=== PATIENT | female | born 1995 | race Caucasian/White ===

== ENCOUNTER 2020-02-24 14:47 | Outpatient (REF) | payer BC, SELFPAY ==
[2020-02-24 15:25] LABS: COVID-19 Test Negative (Negative)
== END 2020-02-24 14:48 | disposition home or self-care (01) ==
LOC: HO.LAB 14:47
PROVIDERS: Visit Provider Internal Medicine
DX: Z20.828 Contact with and (suspected) exposure to other viral communicable diseases (principal)
CPT/HCPCS: 87635

== ENCOUNTER 2020-03-02 07:13 | Outpatient (REF) | payer BC, SELFPAY ==
[2020-03-02 08:00] LABS: COVID-19 Test Negative (Negative)
== END 2020-03-02 07:14 | disposition home or self-care (01) ==
LOC: HO.LAB 07:13
PROVIDERS: Visit Provider Internal Medicine
DX: Z20.828 Contact with and (suspected) exposure to other viral communicable diseases (principal)
CPT/HCPCS: 87635

== ENCOUNTER 2020-05-15 07:00 | Outpatient (REF) | payer OTHER, SELFPAY ==
[2020-05-15 07:19] LABS: COVID-19 Test Negative (Negative)
== END 2020-05-15 07:01 | disposition home or self-care (01) ==
LOC: HO.EMPCOV 07:00
PROVIDERS: Visit Provider Internal Medicine
DX: Z20.822 Contact with and (suspected) exposure to COVID-19 (principal)
CPT/HCPCS: 36415; 87635; C9803

== ENCOUNTER 2020-10-27 09:36 | Outpatient (REF) | payer OTHER, SELFPAY ==
[2020-10-27 11:41] LABS: MANUAL DIFF FLAG NO
[2020-10-27 11:46] LABS: Basophils Percent Auto 0.6 % (0-2); Eosinophils Absolute Auto 0.7 X10*3/uL (0.0-0.4); Eosinophils Percent Auto 9.1 % (0-4); Hematocrit 40.4 % (37-47); Hemoglobin 13.3 g/dl (12.0-16.0); Imm Gran Abs Auto 0.02 X10*3/uL (0.00-0.03); Imm Gran Pct Auto 0.3 % (0.0-0.4); Lymphocytes Absolute Auto 1.2 X10*3/uL (1.2-4.9); Lymphocytes Percent Auto 17.2 % (20-40); Mean Corpuscular HGB Conc 32.9 g/dl (31.0-35.0); Mean Corpuscular Hemoglobin 28.7 pg (27.0-33.0); Mean Corpuscular Volume 87.3 fL (80-98); Mean Platelet Volume 9.1 fL (9.4-12.3); Monocytes Absolute Auto 0.9 X10*3/uL (0.1-1.2); Monocytes Percent Auto 12.9 % (2-11); Neutrophils Absolute Auto 4.3 X10*3/uL (2.0-8.3); Neutrophils Percent Auto 59.9 % (45-73); Platelet Count 284 X10*3/uL (160-400); Red Blood Count 4.63 X10*6/uL (4.20-5.50); Red Cell Distribution Width 12.8 % (11.0-16.0); White Blood Count 7.1 X10*3/uL (4.8-10.8)
[2020-10-27 12:24] LABS: Alanine Aminotransferase 15 U/L (0-31); Albumin Level 3.9 g/dL (3.5-5.0); Alkaline Phosphatase 47 U/L (39-117); Anion Gap 13 (12-20); Aspartate Amino Transferase 20 U/L (5-31); Bilirubin Direct 0.2 mg/dL (0.0-0.5); Bilirubin Total 0.2 mg/dL (0.0-1.0); Blood Urea Nitrogen 6 mg/dL (9-16); Calcium 8.8 mg/dL (8.4-10.2); Carbon Dioxide 25 mmol/L (22-29); Chloride 105 mmol/L (96-108); Estimated Glomerular Filt Rate > 60; Glucose Random 77 mg/dL (60-115); Potassium 4.1 mmol/L (3.3-5.1); Sodium 139 mmol/L (135-145)
[2020-10-27 12:30] LABS: Erythrocyte Sedimentation Rate 11 MM/HR (0-20)
[2020-10-27 12:45] LABS: Free T4 (Free Thyroxine) 0.76 ng/dL (0.71-1.85); HCG Quantitative < 2 mIU/mL
== END 2020-10-27 09:37 | disposition home or self-care (01) ==
LOC: HO.LAB 09:36
PROVIDERS: Referring Provider Physician Assistant Medical; Visit Provider Physician Assistant Medical
DX: E05.90 Thyrotoxicosis, unspecified without thyrotoxic crisis or storm (principal)
CPT/HCPCS: 36415; 80048; 80076; 84439; 84443; 84702; 85025; 85652

== ENCOUNTER 2021-04-16 16:25 | Emergency (ER) | payer OTHER, SELFPAY ==
--- NOTE | 2021-04-16 16:40 | ED.GENADULT ---
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 Tetanus UTD. Hepatitis B immunized. Patient is here and is willing to provide blood work for hepatitis and HIV testing. Related Data Allergies Allergy/AdvReac Type Severity Reaction Status Date / Time fruit and nuts Allergy Unknown Uncoded 12/23/19 00:00 IV contrast Allergy Unknown Uncoded 12/23/19 00:00 Review of Systems Review of Systems: Yes all other systems are reviewed and are negative Constitutional: Constitutional: Reports no additional constitutional complaints, Denies body ache(s), Denies chills, Denies fever(s), Denies headache(s) and Denies weakness Eyes: Eyes: Reports no additional eye complaints and Denies change in vision ENT: Reports system reviewed and no additional complaints, except as documented, Denies dizziness, Denies headache(s), Denies nasal congestion, Denies nasal discharge and Denies neck pain Cardiovascular: Cardiovascular: Reports no additional cardiovascular complaints, Denies chest pain, Denies leg edema and Denies dyspnea Respiratory: Respiratory: Reports no additional respiratory complaints, Denies cough and Denies dyspnea Gastrointestinal: Gastrointestinal: Reports no additional gastrointestinal complaints, Denies abdominal pain, Denies diarrhea, Denies nausea and Denies vomiting Genitourinary: Genitourinary: Reports no additional female genitourinary complaints and Denies urinary incontinence Musculoskeletal: Musculoskeletal: Reports no additional musculoskeletal complaints, Denies back pain, Denies arthralgias, Denies joint swelling, Denies neck pain, Denies numbness and Denies tingling Integumentary/Breasts: Skin/Breast: Reports system reviewed and no additional complaints, except as docu and Denies rash Neurologic: Reports system reviewed and no additional complaints, except as documented, Denies Abnormal speech present, Denies dizziness, Denies headache(s), Denies numbness, Denies tingling and Denies weakness PMF Past Medical History Attestation statement: The following information was validated with the patient. Source: old records reviewed and nursing notes reviewed Social History Social History Advance Directives: No Advance Directives Information Provided: Yes Patient : No Physical Exam Vital Signs: Vital Signs: Last Vital Signs Temp 97.0 F 04/16/21 17:04 Pulse 78 04/16/21 17:04 Resp 16 04/16/21 17:04 BP 120/68 04/16/21 17:04 Pulse Ox 100 04/16/21 17:04 BMI result Body Mass Index 23.5 Const: General: cooperative, healthy appearing, comfortable and no acute distress Orientation/consciousness: patient oriented x3 Limitations: no limitations HENMT: Head: Yes normal to inspection Ears: hearing grossly normal bilaterally General nose exam: Normal external nose present Face and sinus: Yes normal facial exam Mouth: Normal oral and palatal mucosa present Throat: Yes posterior oropharynx normal Eyes: General: appearance normal, both eyes and all related structures Pupils: Equal, round and reactive pupils present Neck: Neck: Yes normal visual inspection Chest: Chest palpation & inspection: normal inspection of the chest Resp: Effort & Inspection: normal respiratory effort Auscultation: clear to auscultation bilaterally Cardio: Rate: regular rate Rhythm: regular rhythm Peripheral pulses: Peripheral pulses 2+ throughout GI: Inspection: Yes normal to inspection Palpation (GI): Soft to palpation and nontender Auscultation: normal bowel sounds Back/Spine/Pelvis: Thoracic/Lumbar Spine: thoracic and lumbar spine normal to inspection Skin: General skin exam: no rashes or lesions noted Neuro: General: patient oriented x3, no focal motor deficits and normal sensation to monofilament Cranial nerves: Yes Equal, round and reactive pupils present Cognition (Neuro): normal cognition Speech: No Abnormal speech present Gait exam (Neuro): Normal gait present Motor exam (neuro): 5/5 motor strength present throughout Extrem: Other: left middle finger dorsal aspect with puncture site noted General: Yes normal to inspection Course Course Course Narrative: 25 yo female here after needlestick with used needle from a patient. Patient will require hepatitis, HIV testing as well as standard labs, urine . She will defer PEP treatment until follow with work connection. Medical Decision Making Medical Records Medical records reviewed: Yes I reviewed the patient's medical records. Lab Data Lab results reviewed: Yes I reviewed the patient's lab results. Result diagrams: 04/16/21 16:58 12/06/21 16:58 Labs: Lab Results 04/16/21 04/16/21 Range/Units 16:58 16:58 WBC 6.4 (4.8-10.8) X10*3/uL RBC 4.76 (4.20-5.50) X10*6/uL Hgb 13.4 (12.0-16.0) g/dl Hct 40.6 (37.0-47.0) % MCV 85.3 (80.0-98.0) fL MCH 28.2 (27.0-33.0) pg MCHC 33.0 (31.0-35.0) g/dl RDW 12.7 (11.0-16.0) % Plt Count 314 (160-400) X10*3/uL MPV 9.4 (9.4-12.3) fL Immature Gran % (Auto) 0.2 (0.0-0.4) % Neut % (Auto) 41.8 L (45-73) % Lymph % (Auto) 46.4 H (20-40) % [place] % (Auto) 8.5 (2-11) % Eos % (Auto) 2.5 (0-4) % Baso % (Auto) 0.6 (0-2) % Lymph # (Auto) 3.0 (1.2-4.9) X10*3/uL [place] # (Auto) 0.5 (0.1-1.2) X10*3/uL Eos # (Auto) 0.2 (0.0-0.4) X10*3/uL Baso # (Auto) 0.0 (0.0-0.2) X10*3/uL Abs Immat Gran (auto) 0.01 (0.00-0.03) X10*3/uL Absolute Neuts (auto) 2.7 (2.0-8.3) x10*3/uL Absolute Nucleated RBC 0.000 (0.0-0.012) X10*3/uL Nucleated RBC % (auto) 0.0 (0.0-0.2) /100WBC Sodium 138 (135-145) mmol/L Potassium 3.6 (3.3-5.1) mmol/L Chloride 104 (96-108) mmol/L Carbon Dioxide 27 (22-29) mmol/L Anion Gap 11 L (12-20) BUN 10 (9-16) mg/dL Creatinine 0.80 (0.5-1.4) mg/dL Estim Creat Clear Calc 103.6 Estimated GFR > 60 Random Glucose 98 (60-115) mg/dL Calcium 9.2 (8.4-10.2) mg/dL Total Bilirubin 0.3 (0.0-1.0) mg/dL Direct Bilirubin < 0.2 (0.0-0.5) mg/dL AST 21 (5-31) U/L ALT 14 (0-31) U/L Alkaline Phosphatase 51 (39-117) U/L Total Protein 7.6 (6.5-8.0) g/dL Albumin 4.1 (3.5-5.0) g/dL Discharge Plan Discharge Clinical Impression: Accidental hypodermic needlestick injury Patient Disposition: Home, Self-Care Instructions: Needle Stick Injuries (ED) Additional Instructions: Follow with work connection Interventions: ED Discharge Assessment Last Done: 04/16/21 18:59 Discharge Date/Time: 04/16/21 19:00
[2021-04-16 17:03] LABS: MANUAL DIFF FLAG NO
[2021-04-16 17:04] VITALS: BP 120/68; PULSE 78; RESP 16; TEMP 36.1; O2SAT 100; BMI 23.5
[2021-04-16 17:04] LABS: Basophils Percent Auto 0.6 % (0-2); Eosinophils Absolute Auto 0.2 X10*3/uL (0.0-0.4); Eosinophils Percent Auto 2.5 % (0-4); Hematocrit 40.6 % (37.0-47.0); Hemoglobin 13.4 g/dl (12.0-16.0); Imm Gran Abs Auto 0.01 X10*3/uL (0.00-0.03); Imm Gran Pct Auto 0.2 % (0.0-0.4); Lymphocytes Percent Auto 46.4 % (20-40); Mean Corpuscular Hemoglobin 28.2 pg (27.0-33.0); Mean Corpuscular Volume 85.3 fL (80.0-98.0); Mean Platelet Volume 9.4 fL (9.4-12.3); Monocytes Absolute Auto 0.5 X10*3/uL (0.1-1.2); Monocytes Percent Auto 8.5 % (2-11); Neutrophils Absolute Auto 2.7 x10*3/uL (2.0-8.3); Neutrophils Percent Auto 41.8 % (45-73); Platelet Count 314 X10*3/uL (160-400); Red Blood Count 4.76 X10*6/uL (4.20-5.50); Red Cell Distribution Width 12.7 % (11.0-16.0); White Blood Count 6.4 X10*3/uL (4.8-10.8)
[2021-04-16 17:21] LABS: Alanine Aminotransferase 14 U/L (0-31); Albumin Level 4.1 g/dL (3.5-5.0); Alkaline Phosphatase 51 U/L (39-117); Anion Gap 11 (12-20); Aspartate Amino Transferase 21 U/L (5-31); Bilirubin Direct < 0.2 mg/dL (0.0-0.5); Bilirubin Total 0.3 mg/dL (0.0-1.0); Blood Urea Nitrogen 10 mg/dL (9-16); Calcium 9.2 mg/dL (8.4-10.2); Carbon Dioxide 27 mmol/L (22-29); Chloride 104 mmol/L (96-108); Creatinine Clr Calc Pharmacy 103.6; Estimated Glomerular Filt Rate > 60; Glucose Random 98 mg/dL (60-115); Potassium 3.6 mmol/L (3.3-5.1); Sodium 138 mmol/L (135-145); Total Protein 7.6 g/dL (6.5-8.0)
[2021-04-17 04:13] LABS: HBsAGNum1 0.22 S/CO (0.00-0.99); HIV AB/AG Nonreactive (Nonreactive); HIV Num 1 0.07 S/CO (0.00-0.99); Hepatitis B Core Antibody Nonreactive (Nonreactive); Hepatitis B Surface Antigen Negative (Negative); ~HepC Num1 0.23 S/CO (0.00-0.79); ~Hepatitis C Antibody Nonreactive (Nonreactive)
[2021-04-17 04:20] LABS: ~Hepatitis B Surface Antibody NONREACTIVE (Nonreactive)
== END 2021-04-16 19:00 | disposition home or self-care (01) ==
PROVIDERS: Nurse Practitioner Family; Emergency Provider Emergency Medicine
DX: Z04.2 Encounter for examination and observation following work accident (principal); Z77.21 Contact with and (suspected) exposure to potentially hazardous body fluids
CPT/HCPCS: 36415; 80048; 80076; 85025; 86704; 86706; 86803; 87340; 87389; 99283

== ENCOUNTER 2021-05-14 08:15 | Outpatient (REF) | payer OTHER, SELFPAY ==
[2021-05-14 08:45] LABS: COVID-19 Test Negative (Negative); IDNOW Serial# 9DD0AD1C
== END 2021-05-14 08:16 | disposition home or self-care (01) ==
LOC: HO.LAB 08:15
PROVIDERS: Visit Provider Internal Medicine
DX: Z20.822 Contact with and (suspected) exposure to COVID-19 (principal)
CPT/HCPCS: 36415; 87635; C9803

== ENCOUNTER 2021-05-23 02:04 | Outpatient (REF) | payer OTHER, SELFPAY ==
[2021-05-23 03:02] LABS: Influenza A PCR NEGATIVE (Negative); Influenza B PCR NEGATIVE (Negative); Resp Syncy Virus RNA Qual PCR NEGATIVE (Negative)
[2021-05-23 03:05] LABS: SARS COV2 PCR INHOUSE POSITIVE (Negative)
== END 2021-05-23 02:05 | disposition home or self-care (01) ==
LOC: HO.LAB 02:04
PROVIDERS: Visit Provider Internal Medicine
DX: Z20.822 Contact with and (suspected) exposure to COVID-19 (principal)
CPT/HCPCS: 0241U

== ENCOUNTER 2021-11-03 08:31 | Outpatient (REF) | payer OTHER, SELFPAY ==
[2021-11-03 08:55] LABS: MANUAL DIFF FLAG NO
[2021-11-03 09:02] LABS: Basophils Absolute Auto 0.1 X10*3/uL (0.0-0.2); Basophils Percent Auto 0.9 % (0-2); Eosinophils Absolute Auto 0.2 X10*3/uL (0.0-0.4); Eosinophils Percent Auto 4.3 % (0-4); Hematocrit 42.9 % (37.0-47.0); Hemoglobin 14.3 g/dl (12.0-16.0); Imm Gran Abs Auto 0.01 X10*3/uL (0.00-0.03); Imm Gran Pct Auto 0.2 % (0.0-0.4); Lymphocytes Absolute Auto 2.3 X10*3/uL (1.2-4.9); Lymphocytes Percent Auto 43.4 % (20-40); Mean Corpuscular HGB Conc 33.3 g/dl (31.0-35.0); Mean Corpuscular Hemoglobin 28.5 pg (27.0-33.0); Mean Corpuscular Volume 85.6 fL (80.0-98.0); Mean Platelet Volume 8.9 fL (9.4-12.3); Monocytes Absolute Auto 0.5 X10*3/uL (0.1-1.2); Neutrophils Absolute Auto 2.2 x10*3/uL (2.0-8.3); Neutrophils Percent Auto 41.2 % (45-73); Platelet Count 334 X10*3/uL (160-400); Red Blood Count 5.01 X10*6/uL (4.20-5.50); White Blood Count 5.4 X10*3/uL (4.8-10.8)
[2021-11-03 09:18] LABS: Alanine Aminotransferase 11 U/L (0-31); Alkaline Phosphatase 50 U/L (39-117); Anion Gap 11 (12-20); Aspartate Amino Transferase 21 U/L (5-31); Bilirubin Total 0.5 mg/dL (0.0-1.0); Blood Urea Nitrogen 11 mg/dL (9-16); Calcium 9.2 mg/dL (8.4-10.2); Carbon Dioxide 26 mmol/L (22-29); Chloride 105 mmol/L (96-108); Estimated Glomerular Filt Rate > 60; Glucose Random 82 mg/dL (60-115); Potassium 4.3 mmol/L (3.3-5.1); Sodium 138 mmol/L (135-145); Total Protein 7.5 g/dL (6.5-8.0)
[2021-11-03 09:25] LABS: HCG Quantitative < 2 mIU/mL
[2021-11-03 09:49] LABS: Erythrocyte Sedimentation Rate 4 MM/HR (0-20)
[2021-11-05 19:33] LABS: Lyme Abs Screen <0.90 index
== END 2021-11-03 08:32 | disposition home or self-care (01) ==
LOC: HO.LAB 08:31
PROVIDERS: Emergency Medicine Emergency Medical Services; Visit Provider Nurse Practitioner Family
DX: R59.9 Enlarged lymph nodes, unspecified (principal)
CPT/HCPCS: 36415; 80053; 84702; 85025; 85652; 86140; 86617; 86618

== ENCOUNTER 2022-01-13 14:09 | Outpatient (REF) | payer OTHER, SELFPAY ==
[2022-01-13 14:25] LABS: Appearance Urine Clear; Color Urine Yellow; Glucose Urine UA Negative (Negative); Leukocyte Esterase Urine Negative (Negative); Nitrite Urine Negative (Negative); PH 6.5 (5.0-9.0); Urine Blood Negative (Negative); Urine Ketones Negative (Negative); Urine Protein Negative (Neg-Trace)
[2022-01-13 14:27] LABS: UPreg QC Valid YES; Urine Pregnancy NEGATIVE (NEGATIVE)
== END 2022-01-13 14:10 | disposition home or self-care (01) ==
LOC: HO.LAB 14:09
PROVIDERS: Visit Provider Physician Assistant
DX: R30.0 Dysuria (principal); Z32.00 Encounter for pregnancy test, result unknown
CPT/HCPCS: 81003; 81025

== ENCOUNTER 2022-01-23 09:27 | Outpatient (REF) | payer OTHER, SELFPAY ==
[2022-01-23 10:01] LABS: Strep A Nucleic Acid Negative (Negative)
[2022-01-23 10:03] LABS: COVID-19 Test Negative (Negative)
== END 2022-01-23 09:28 | disposition home or self-care (01) ==
LOC: HO.LAB 09:27
PROVIDERS: Visit Provider Physician Assistant
DX: Z20.822 Contact with and (suspected) exposure to COVID-19 (principal)
CPT/HCPCS: 87635; 87651

== ENCOUNTER 2022-04-04 07:38 | Outpatient (REF) | payer OTHER, SELFPAY ==
--- NOTE | ~2022-04-04 | XR_ITS ---
EXAMINATION: XR LUMBAR SPINE XR HIP, RIGHT, WITH PELVIS CLINICAL INFORMATION: Chronic low back pain. COMPARISON: None TECHNIQUE: Lumbar spine 3 views. AP pelvis and right hip 3 views. FINDINGS: LUMBAR SPINE: There is mild straightening of the lumbar lordosis. The vertebral heights, alignment and disc heights are normal. There is no visible acute fracture, dislocation or lytic process seen. The paravertebral soft tissues are normal. The SI joints are symmetrical and normal. AP PELVIS AND RIGHT HIP: There is normal symmetry of the bilateral hip joints and SI joints. No lytic or sclerotic process is seen involving the pelvis. AP and frog-leg views of the right hip reveal no visible acute fracture, dislocation or subluxation. No bony erosive changes. The soft tissues are normal. XR/XR hip RT w PEL1V IMPRESSION: 1. Mild straightening of the lumbar lordosis, likely spasm. No visible acute fracture, dislocation or lytic process seen. 2. Unremarkable AP pelvis and right hip exam.
--- NOTE | ~2022-04-04 | XR_ITS ---
EXAMINATION: XR LUMBAR SPINE XR HIP, RIGHT, WITH PELVIS CLINICAL INFORMATION: Chronic low back pain. COMPARISON: None TECHNIQUE: Lumbar spine 3 views. AP pelvis and right hip 3 views. FINDINGS: LUMBAR SPINE: There is mild straightening of the lumbar lordosis. The vertebral heights, alignment and disc heights are normal. There is no visible acute fracture, dislocation or lytic process seen. The paravertebral soft tissues are normal. The SI joints are symmetrical and normal. AP PELVIS AND RIGHT HIP: There is normal symmetry of the bilateral hip joints and SI joints. No lytic or sclerotic process is seen involving the pelvis. AP and frog-leg views of the right hip reveal no visible acute fracture, dislocation or subluxation. No bony erosive changes. The soft tissues are normal. XR/XR lumbar spine 2-3V IMPRESSION: 1. Mild straightening of the lumbar lordosis, likely spasm. No visible acute fracture, dislocation or lytic process seen. 2. Unremarkable AP pelvis and right hip exam.
== END 2022-04-04 07:39 | disposition home or self-care (01) ==
LOC: HO.XRAY 07:38
PROVIDERS: PCP Internal Medicine; Visit Provider Physical Medicine & Rehabilitation Sports Medicine
DX: M54.50 Low back pain, unspecified (principal); G89.29 Other chronic pain; M25.551 Pain in right hip
CPT/HCPCS: 72100; 73502

== ENCOUNTER 2022-06-21 11:29 | Outpatient (REF) | payer OTHER, SELFPAY ==
[2022-06-21 12:43] LABS: HCG Quantitative 116 mIU/mL
== END 2022-06-21 11:30 | disposition home or self-care (01) ==
LOC: HO.LAB 11:29
PROVIDERS: PCP Internal Medicine; Visit Provider Physician Assistant
DX: Z34.80 Encounter for supervision of other normal pregnancy, unspecified trimester (principal)
CPT/HCPCS: 36415; 84702

== ENCOUNTER 2022-06-24 09:16 | Outpatient (REF) | payer OTHER, SELFPAY ==
[2022-06-24 10:03] LABS: HCG Quantitative 557 mIU/mL
== END 2022-06-24 09:17 | disposition home or self-care (01) ==
LOC: HO.LAB 09:16
PROVIDERS: PCP Internal Medicine; Visit Provider Physician Assistant Medical
DX: Z34.90 Encounter for supervision of normal pregnancy, unspecified, unspecified trimester (principal)
CPT/HCPCS: 36415; 84702; 86900; 86901

== ENCOUNTER 2022-06-29 13:23 | Outpatient (REF) | payer OTHER, SELFPAY ==
[2022-06-29 14:27] LABS: Influenza A PCR NEGATIVE (Negative); Influenza B PCR NEGATIVE (Negative); Resp Syncy Virus RNA Qual PCR NEGATIVE (Negative); SARS COV2 PCR INHOUSE NEGATIVE (Negative)
== END 2022-06-29 13:24 | disposition home or self-care (01) ==
LOC: HO.LAB 13:23
PROVIDERS: PCP Internal Medicine; Visit Provider Nurse Practitioner Family
DX: Z20.822 Contact with and (suspected) exposure to COVID-19 (principal); J02.9 Acute pharyngitis, unspecified
CPT/HCPCS: 0241U

== ENCOUNTER 2022-07-19 07:59 | Outpatient (REF) | payer OTHER, SELFPAY ==
[2022-07-19 09:09] LABS: MANUAL DIFF FLAG NO
[2022-07-19 09:18] LABS: Appearance Urine Turbid; Color Urine Yellow; Glucose Urine UA Negative (Negative); Leukocyte Esterase Urine Small (1+) (Negative); Nitrite Urine Negative (Negative); Specific Gravity - Urine 1.025 (1.005-1.025); UMIC TRIGGER UA YES; Urine Blood Negative (Negative); Urine Ketones Negative (Negative); Urine Protein Negative (Neg-Trace)
[2022-07-19 09:24] LABS: Basophils Percent Auto 0.4 % (0-2); Eosinophils Absolute Auto 0.1 X10*3/uL (0.0-0.4); Eosinophils Percent Auto 1.3 % (0-4); Hematocrit 39.1 % (37.0-47.0); Hemoglobin 13.1 g/dl (12.0-16.0); Imm Gran Abs Auto 0.02 X10*3/uL (0.00-0.03); Imm Gran Pct Auto 0.3 % (0.0-0.4); Lymphocytes Absolute Auto 1.9 X10*3/uL (1.2-4.9); Lymphocytes Percent Auto 27.5 % (20-40); Mean Corpuscular HGB Conc 33.5 g/dl (31.0-35.0); Mean Corpuscular Hemoglobin 28.4 pg (27.0-33.0); Mean Corpuscular Volume 84.8 fL (80.0-98.0); Mean Platelet Volume 9.2 fL (9.4-12.3); Monocytes Absolute Auto 0.6 X10*3/uL (0.1-1.2); Monocytes Percent Auto 8.9 % (2-11); Neutrophils Absolute Auto 4.3 x10*3/uL (2.0-8.3); Neutrophils Percent Auto 61.6 % (45-73); Platelet Count 300 X10*3/uL (160-400); Red Blood Count 4.61 X10*6/uL (4.20-5.50); Red Cell Distribution Width 12.4 % (11.0-16.0); White Blood Count 7.1 X10*3/uL (4.8-10.8)
[2022-07-19 09:32] LABS: Bacteria Urine Trace (None Seen); Hyaline Casts Urine 0-2 /LPF (0-2); Other Crystals Urine Present; RBC Urine 0-2 /HPF (0-2); WBC Urine 0-5 /HPF (0-5)
[2022-07-19 12:26] LABS: Syphilis Screen Nonreactive (Nonreactive)
[2022-07-19 13:00] LABS: HBsAGNum1 0.39 S/CO (0.00-0.99); HIV AB/AG Nonreactive (Nonreactive); HIV Num 1 0.06 S/CO (0.00-0.99); Hepatitis B Surface Antigen Negative (Negative); ~HepC Num1 0.18 S/CO (0.00-0.79); ~Hepatitis C Antibody Nonreactive (Nonreactive)
[2022-07-23 04:39] LABS: Rubella IgG Antibody 1.76 Index
== END 2022-07-19 08:00 | disposition home or self-care (01) ==
LOC: HO.LAB 07:59
PROVIDERS: PCP Internal Medicine; Visit Provider Advanced Practice Midwife
DX: Z34.90 Encounter for supervision of normal pregnancy, unspecified, unspecified trimester (principal); R82.90 Unspecified abnormal findings in urine
CPT/HCPCS: 36415; 81001; 85025; 86762; 86780; 86803; 86850; 86900; 87086; 87340; 87389

== ENCOUNTER 2022-08-15 07:23 | Outpatient (REF) | payer OTHER, SELFPAY ==
[2022-08-15 08:33] LABS: Appearance Urine Cloudy; Color Urine Dark Yellow; Glucose Urine UA Negative (Negative); Leukocyte Esterase Urine Trace (Negative); Nitrite Urine Negative (Negative); Specific Gravity - Urine 1.025 (1.005-1.025); UMIC TRIGGER UACC YES; Urine Blood Negative (Negative); Urine Ketones Negative (Negative); Urine Protein Negative (Neg-Trace)
[2022-08-15 08:41] LABS: Bacteria Urine Trace (None Seen); Hyaline Casts Urine 0-2 /LPF (0-2); WBC Urine 0-5 /HPF (0-5)
== END 2022-08-15 07:24 | disposition home or self-care (01) ==
LOC: HO.LAB 07:23
PROVIDERS: PCP Internal Medicine; Visit Provider Advanced Practice Midwife
DX: Z34.90 Encounter for supervision of normal pregnancy, unspecified, unspecified trimester (principal)
CPT/HCPCS: 81001

== ENCOUNTER 2022-09-16 10:32 | Outpatient (REF) | payer OTHER, SELFPAY | END 2022-09-16 10:33 | disposition home or self-care (01) | LOC: HO.LAB 10:32 | PROVIDERS: PCP Internal Medicine; Visit Provider Advanced Practice Midwife | DX: Z34.02 Encounter for supervision of normal first pregnancy, second trimester (principal) | CPT/HCPCS: 36415; 82105 ==

== ENCOUNTER 2022-10-04 11:33 | Outpatient (REF) | payer OTHER, SELFPAY | END 2022-10-04 11:34 | disposition home or self-care (01) | LOC: HO.LAB 11:33 | PROVIDERS: PCP Internal Medicine; Visit Provider Advanced Practice Midwife | DX: Z34.90 Encounter for supervision of normal pregnancy, unspecified, unspecified trimester (principal) | CPT/HCPCS: 36415; 82105 ==

== ENCOUNTER 2022-11-27 06:42 | Outpatient (REF) | payer OTHER, SELFPAY ==
[2022-11-27 07:58] LABS: MANUAL DIFF FLAG NO
[2022-11-27 08:18] LABS: Basophils Percent Auto 0.4 % (0-2); Eosinophils Absolute Auto 0.1 X10*3/uL (0.0-0.4); Eosinophils Percent Auto 1.6 % (0-4); Hematocrit 34.1 % (37.0-47.0); Hemoglobin 11.3 g/dl (12.0-16.0); Imm Gran Abs Auto 0.03 X10*3/uL (0.00-0.03); Imm Gran Pct Auto 0.4 % (0.0-0.4); Lymphocytes Absolute Auto 1.7 X10*3/uL (1.2-4.9); Lymphocytes Percent Auto 20.1 % (20-40); Mean Corpuscular HGB Conc 33.1 g/dl (31.0-35.0); Mean Corpuscular Hemoglobin 29.4 pg (27.0-33.0); Mean Corpuscular Volume 88.8 fL (80.0-98.0); Mean Platelet Volume 9.5 fL (9.4-12.3); Monocytes Absolute Auto 0.6 X10*3/uL (0.1-1.2); Monocytes Percent Auto 6.9 % (2-11); Neutrophils Absolute Auto 5.9 x10*3/uL (2.0-8.3); Neutrophils Percent Auto 70.6 % (45-73); Platelet Count 264 X10*3/uL (160-400); Red Blood Count 3.84 X10*6/uL (4.20-5.50); Red Cell Distribution Width 13.2 % (11.0-16.0); White Blood Count 8.3 X10*3/uL (4.8-10.8)
[2022-11-27 08:38] LABS: Glucose 1 Hour PP 50gm Dose 120 mg/dL (60-140)
[2022-11-27 09:00] LABS: Syphilis Screen Nonreactive (Nonreactive)
== END 2022-11-27 06:43 | disposition home or self-care (01) ==
LOC: HO.LAB 06:42
PROVIDERS: PCP Internal Medicine; Visit Provider Advanced Practice Midwife
DX: Z34.02 Encounter for supervision of normal first pregnancy, second trimester (principal)
CPT/HCPCS: 36415; 82950; 85025; 86780

== ENCOUNTER 2023-02-19 10:55 | Outpatient (REF) | payer OTHER, SELFPAY ==
[2023-02-19 11:12] LABS: MANUAL DIFF FLAG NO
[2023-02-19 11:48] LABS: Basophils Percent Auto 0.4 % (0-2); Eosinophils Absolute Auto 0.1 X10*3/uL (0.0-0.4); Eosinophils Percent Auto 1.2 % (0-4); Hematocrit 35.6 % (37.0-47.0); Hemoglobin 11.9 g/dl (12.0-16.0); Imm Gran Abs Auto 0.06 X10*3/uL (0.00-0.03); Imm Gran Pct Auto 0.7 % (0.0-0.4); Lymphocytes Absolute Auto 2.3 X10*3/uL (1.2-4.9); Mean Corpuscular HGB Conc 33.4 g/dl (31.0-35.0); Mean Corpuscular Hemoglobin 29.5 pg (27.0-33.0); Mean Corpuscular Volume 88.3 fL (80.0-98.0); Mean Platelet Volume 11.5 fL (9.4-12.3); Monocytes Absolute Auto 0.7 X10*3/uL (0.1-1.2); Monocytes Percent Auto 7.7 % (2-11); Neutrophils Absolute Auto 5.9 x10*3/uL (2.0-8.3); Platelet Count 162 X10*3/uL (160-400); Red Blood Count 4.03 X10*6/uL (4.20-5.50); Red Cell Distribution Width 12.8 % (11.0-16.0); White Blood Count 9.1 X10*3/uL (4.8-10.8)
[2023-02-19 12:40] LABS: Total Protein Urine Random 50 mg/dL (<12)
[2023-02-19 12:43] LABS: Alanine Aminotransferase 21 U/L (0-31); Aspartate Amino Transferase 39 U/L (5-31); Blood Urea Nitrogen 10 mg/dL (9-16); Estimated Glomerular Filt Rate > 60
== END 2023-02-19 10:56 | disposition home or self-care (01) ==
LOC: HO.LAB 10:55
PROVIDERS: PCP Physician Assistant Medical; Visit Provider Advanced Practice Midwife
DX: O13.9 Gestational [pregnancy-induced] hypertension without significant proteinuria, unspecified trimester (principal); Z3A.00 Weeks of gestation of pregnancy not specified
CPT/HCPCS: 36415; 82565; 82570; 84156; 84450; 84460; 84520; 85025

== ENCOUNTER 2023-06-12 10:51 | Outpatient (REF) | payer OTHER, SELFPAY ==
[2023-06-12 11:14] LABS: MANUAL DIFF FLAG NO
[2023-06-12 11:58] LABS: Basophils Percent Auto 0.7 % (0-2); Eosinophils Absolute Auto 0.1 X10*3/uL (0.0-0.4); Eosinophils Percent Auto 2.6 % (0-4); Hematocrit 43.9 % (37.0-47.0); Hemoglobin 14.6 g/dl (12.0-16.0); Imm Gran Abs Auto 0.01 X10*3/uL (0.00-0.03); Imm Gran Pct Auto 0.2 % (0.0-0.4); Lymphocytes Absolute Auto 2.6 X10*3/uL (1.2-4.9); Lymphocytes Percent Auto 47.4 % (20-40); Mean Corpuscular HGB Conc 33.3 g/dl (31.0-35.0); Mean Corpuscular Hemoglobin 28.9 pg (27.0-33.0); Mean Corpuscular Volume 86.8 fL (80.0-98.0); Mean Platelet Volume 9.1 fL (9.4-12.3); Monocytes Absolute Auto 0.5 X10*3/uL (0.1-1.2); Monocytes Percent Auto 8.9 % (2-11); Neutrophils Absolute Auto 2.2 x10*3/uL (2.0-8.3); Neutrophils Percent Auto 40.2 % (45-73); Platelet Count 344 X10*3/uL (160-400); Red Blood Count 5.06 X10*6/uL (4.20-5.50); Red Cell Distribution Width 12.3 % (11.0-16.0); White Blood Count 5.5 X10*3/uL (4.8-10.8)
[2023-06-12 12:50] LABS: Alanine Aminotransferase 22 U/L (0-31); Alkaline Phosphatase 53 U/L (39-117); Anion Gap 11 (12-20); Aspartate Amino Transferase 19 U/L (5-31); Bilirubin Total 0.4 mg/dL (0.0-1.0); Blood Urea Nitrogen 12 mg/dL (9-16); Calcium 9.3 mg/dL (8.4-10.2); Carbon Dioxide 27 mmol/L (22-29); Chloride 104 mmol/L (96-108); Cholesterol 174 mg/dL (<200); Estimated Glomerular Filt Rate > 60; Glucose Random 78 mg/dL (60-115); HDL Cholesterol 50 mg/dL (>40); LDL Cholesterol Calculated 106 mg/dL (<100); Potassium 3.9 mmol/L (3.3-5.1); Sodium 138 mmol/L (135-145); Total Protein 7.6 g/dL (6.5-8.0); Triglycerides 91 mg/dL (<150)
[2023-06-12 13:07] LABS: Vitamin D 25-OH Total 50.6 ng/mL (>30)
[2023-06-13 22:44] LABS: EBV-VCA IgG Ab >750.00 U/mL; EBV-VCA IgM Ab <36.00 U/mL
[2023-06-15 00:23] LABS: Zinc 67 mcg/dL (60-130)
== END 2023-06-12 10:52 | disposition home or self-care (01) ==
LOC: HO.LAB 10:51
PROVIDERS: Visit Provider Physician Assistant Medical
DX: Z00.00 Encounter for general adult medical examination without abnormal findings (principal); Z13.6 Encounter for screening for cardiovascular disorders
CPT/HCPCS: 36415; 80053; 80061; 82306; 84630; 85025; 86664; 86665

== ENCOUNTER 2024-02-05 10:58 | Outpatient (AMB) | payer BC, SELFPAY ==
--- NOTE | 2024-02-05 11:02 | MHC.PC.OV ---
Vital Signs 02/05/24 11:09 Height 5 ft 7 in Weight 160 lb BMI 25.1 BP 106/56 L Blood Pressure Location Lt brachial Position Sitting Respiration 12 Pulse 85 Pulse Source Pulse Oximeter Pulse Oximetry (%) 98 Oxygen Delivery Method Room Air Intake Visit [facility]ills Intake Note: Patient is here [place] [facility] [place] [facility] [place]. Patient shares she has no concerns at this time. Triage Specialist Required: No Accompanied by: Son Allergies IV contrast Allergy (Severe, Uncoded 02/05/24 11:14) Anaphylaxis Tobacco use date assessed: 02/05/24 Dental Screening Dental Screen Date: 02/05/24 Did you have a dental visit in the last 12 months?: Yes Did you have a dental problem in the last 6 months where you did not have access to dental care?: No Was dental information given to patient?: Patient has dentist HPI HPI Comments History of Present Illness Details This is a 28-year-old female with a past medical history of migraines, gestational hypertension, Jos bar infection and eczema presenting to [facility] care. She transferred from my panel at [facility] primary care. Her son is with her today. Her son, Javon, is turning 1-year-old in a few weeks. 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 She is looking at daycares right now. Her works as a electrical lineman. She has seen Rheumatology at [facility] for chronic fatigue and joint pains. She was on a regimen for Jos-Reynolds infection previously. Her symptoms come and go. She has refills right now on Zofran, Flexeril and Fioricet. She is not breast-feeding. She uses these medications as needed for migraines, and they are effective. We discussed a hearing issue at her physical in 05/2023. She feels like she has decreased hearing when she is in a loud place with background noise. No tinnitus or dizziness. She was referred to ENT. Patient will call to schedule the appointment. ROS: Constitutional: No unexplained weight loss, fever or chills ENT: No hearing loss, sneezing, congestion, runny nose or sore throat. Psychiatric: No depression or anxiety. Physical exam: Constitutional: Alert, in no distress. Neck: Supple, Full range of motion. No lymphadenopathy. Respiratory: Clear to auscultation. Cardiovascular: S1 S2 regular. No murmurs. Psychiatric: Normal mood and affect [facility] Medical History (Updated 02/05/24 @ 11:50 by ELSA Payne) Migraine Malaise and fatigue HSV-1 (herpes simplex virus 1) infection Gestational hypertension Jos Reynolds infection Abnormal Pap smear of cervix Eczema Surgical History (Updated 02/05/24 @ 10:46 by Jennifer Cross CMA) History of wisdom tooth extraction History of removal of cyst Family History (Updated 02/05/24 @ 11:01 by Jennifer Cross CMA) Father Hypertension Respiratory disease Mother Hypertension Migraine Thyroid disorder Sister Migraine Sister Migraine Paternal Grandmother Breast cancer Social History (Updated 02/05/24 @ 11:02 by Jennifer Cross CMA) Household Members: Spouse and Children Both parents involved: No Caregiver staying overnight: No Housing: House Are you a primary multi care technician to a significant other at home: No Do you presently have visiting nurse or other home services: No 75 years or older and lives alone: No Alcohol intake: current Alcohol intake frequency: holidays/special occasions only Patient Tobacco Use Status: Never used Tobacco e-Cigarette/Vaping Use: Never Used service: No Current occupational status: employed 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 1. Little interest or pleasure in doing things: not at all 2. Feeling down, depressed, or hopeless: not at all 3. Trouble falling or staying asleep, or sleeping too much: not at all 4. Feeling tired or having little energy: not at all 5. Poor appetite or overeating: not at all 6. Feeling bad about yourself - or that you are a failure or have let yourself or your family down: not at all 7. Trouble concentrating on things, such as reading the newspaper or watching television: not at all 8. Moving or speaking so slowly that other people could have noticed. Or the opposite - being so fidgety or restless that you have been moving around a lot more than usual: not at all 9. Thoughts that you would be better off or of hurting yourself in some way: not at all Total score: 0 Depression Screening Interpretation: Negative Depression Screening Done: Yes 63550 - PHQ-9 Billing: Yes Source: Developed by Drs. Dell Kumar, Yaneli Jama, Sonu Garnica and colleagues, with an educational ancelmo from [employer]. Thrive Questionnaire Date Thrive assessed: 02/05/24 I am a: Patient What is your living situation today?: I have a steady place to live Within the past 12 months, did the food you bought not last and you didn't have the money to get more?: Never true Within the past 12 months, did you worry whether your food would run out before you got money to buy more?: Never true Do you have trouble paying for medicines?: No Do you have trouble getting transportation to medical appointments?: No Do you have trouble paying your heating and electricity bill?: No Do you have trouble taking care of your child, family member or friend?: No Do you have trouble with day-to-day activities such as bathing, preparing meals, shopping, managing finances, etc.?: No Are you currently unemployed and looking for a job?: No Are you interested in more education?: No Please select the resources that you would like help with: None Currently or been in a relationship where the following occur: No concerns reported THRIVE Score: 0 AUDIT C Alcohol Use Questionnaire (AUDIT-C) 1. How often do you have a drink containing alcohol?: Monthly or less 2. How many drinks containing alcohol do you have on a typical day when you are drinking?: 1 or 2 3. How often do you have six or more drinks on one occasion?: Never Total Score: 1 Score Reviewed/Action Taken: No YAMILETH-7 AMB Questionnaire YAMILETH-7 Date YAMILETH - 7 assessed: 02/05/24 Feeling nervous, anxious, or on edge: 0 = Not at all Not being able to stop or control worryin = Not at all Worrying too much about different things: 0 = Not at all Trouble relaxin = Not at all Being so restless that it is hard to sit still: 0 = Not at all Becoming easily annoyed or irritable: 0 = Not at all Feeling afraid as if something awful might happen: 0 = Not at all Total YAMILETH-7 score (0-4 normal; 5-9 mild; 10-14 moderate; 15-21 severe): 0 Source: Developed by Drs. Dell Kumar, Yaneli Jama, Sonu Garnica and colleagues, with an educational ancelmo from [employer]. YAMILETH-7 Assessment Billing YAMILETH-7 Assessment Tool: YAMILETH-7 Assessment 14947 Physical exam (Primary Care) Vital Signs: Last Vital Signs Pulse 85 02/05/24 11:09 Resp 12 02/05/24 11:09 BP 106/56 L 02/05/24 11:09 Pulse Ox 98 02/05/24 11:09 Oxygen Delivery Method Room Air 02/05/24 11:09 BMI result Body Mass Index 25.1 Tobacco/Smoking Status: Tobacco use Status Tobacco use date assessed 02/05/24 02/05/24 11:20 Patient Tobacco Use Status Never used Tobacco 02/05/24 11:08 e-Cigarette/Vaping Use Never Used 02/05/24 11:08 PHQ-9: PHQ-9 Score PHQ-9: Total score 0 02/05/24 11:20 Depression Screening Interpretation: Negative Thrive Assessment: Date of Thrive Assessment Date Thrive assessed 02/05/24 02/05/24 11:20 Currently or been in a relationship where the following occur: No concerns reported Assessment and Plan Assessment & Plan (1) Malaise and fatigue: Code(s): R53.81 - Other malaise; R53.83 - Other fatigue (2) Jos Reynolds infection: Code(s): B27.90 - Infectious mononucleosis, unspecified without complication (3) Migraine: Code(s): G43.909 - Migraine, unspecified, not intractable, without status migrainosus Qualifiers: Migraine type: migraine (< 15 days per month) without aura Status migrainosus presence: without status migrainosus Intractability: not intractable Qualified Code(s): G43.009 - Migraine without aura, not intractable, without status migrainosus Plan The patient is doing well. She may be going back to work full-time next year, and then she wants to try to have another child. She did not need refills on her migraine medications today or Valtrex. She will schedule a physical exam in 07/01/2023. Medications: Discontinued amoxicillin Discontinued Reason: Patient no longer taking 875 mg PO BID 14 days 28 tabs 0RF nitrofurantoin monohyd/m-cryst 100 mg (Macrobid) must administer with a meal/food Discontinued Reason: Patient no longer taking 100 mg PO BID 7 days 14 caps 0RF phenazopyridine (Pyridium) Discontinued Reason: Patient no longer taking 100 mg PO TID PRN 6 tabs 2RF pain Coding Level of Care Code Est Pt Level 3 (18033) Diagnoses Malaise and fatigue R53.81; R53.83 Jos Reynolds infection B27.90 Migraine without aura and without status migrainosus, not intractable G43.009 Migraine type: migraine (< 15 days per month) without aura Status migrainosus presence: without status migrainosus Intractability: not intractable Additional Codes YAMILETH-7 Assessment Billing - YAMILETH-7 Assessment Tool: YAMILETH-7 Assessment [id number] ([id number])
[2024-02-05 11:09] VITALS: BP 106/56; PULSE 85; RESP 12; O2SAT 98; BMI 25.1
== END 2024-02-05 11:44 | disposition home or self-care (01) ==
PROVIDERS: Visit Provider Physician Assistant Medical
DX: R53.81 Other malaise (principal); R53.83 Other fatigue; B27.90 Infectious mononucleosis, unspecified without complication; G43.009 Migraine without aura, not intractable, without status migrainosus

== ENCOUNTER → 2024-02-05 10:58 | Outpatient (BNVA) | payer BC, SELFPAY | PROVIDERS: Visit Provider Physician Assistant Medical | DX: R53.81 Other malaise (principal); R53.83 Other fatigue; B27.90 Infectious mononucleosis, unspecified without complication; G43.009 Migraine without aura, not intractable, without status migrainosus | CPT/HCPCS: 96127 ==

== ENCOUNTER 2024-04-06 13:19 | Outpatient (REF) | payer BC, SELFPAY ==
--- NOTE | ~2024-04-06 | XR_ITS ---
EXAMINATION: XR CHEST CLINICAL INFORMATION: T14.90XA - Injury, unspecified, initial encounter COMPARISON: None available. TECHNIQUE: 2 views of the chest were obtained. FINDINGS: No significant abnormality is noted involving the heart, lungs, mediastinum, bony thorax or soft tissues. XR/XR chest 2V IMPRESSION: Unremarkable examination. Electronically signed by: Reji Otto MD 04/07/2024 05:36 PM EST
== END 2024-04-06 13:20 | disposition home or self-care (01) ==
LOC: HO.XRAY 13:19
PROVIDERS: PCP Physician Assistant Medical; Visit Provider Physician Assistant Medical
DX: T14.90XA Injury, unspecified, initial encounter (principal)
CPT/HCPCS: 71046

== ENCOUNTER 2024-10-28 10:53 | Outpatient (AMB) | payer BC, SELFPAY ==
--- NOTE | 2024-10-28 10:59 | A.OFFPC_ITS ---
Vital Signs 10/28/24 11:04 Height 5 ft 7 in Weight 156 lb 6 oz BMI 24.5 BP 108/72 Blood Pressure Location Lt brachial Position Sitting Pulse 91 Pulse Source Pulse Oximeter Temp 98.4 F Temp Source Temporal Artery Scan Pulse Oximetry (%) 98 Oxygen Delivery Method Room Air Intake Visit Reasons: Physical Intake Note: Becky presents in the office today for her annual physical. Allergies IV contrast Allergy (Severe, Uncoded 10/28/24 11:01) Anaphylaxis Tobacco use date assessed: 10/28/24 Dental Screening Dental Screen Date: 10/28/24 Did you have a dental visit in the last 12 months?: Yes Did you have a dental problem in the last 6 months where you did not have access to dental care?: No Was dental information given to patient?: Patient has dentist HPI HPI Comments History of Present Illness Details This is a 29-year-old female with a past medical history of migraines, gestational hypertension, Jos bar infection and eczema presenting for a physical exam. She has with her son, Javon, today. He has 1-1/2 years old. She is planning to try for another baby at the end of the year. 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 She has seen Rheumatology at [facility] for chronic fatigue and joint pains. She was on a regimen for Jos-Reynolds infection previously. Her symptoms come and go. She continues to endorse chronic fatigue and stiffness in her finger joints. I ordered screening for rheumatological disease and Lyme disease, and we discussed referral to Rheumatology if testing is positive. She has refills right now on Zofran and Fioricet. She is not breast-feeding. She uses these medications as needed for migraines, and they are effective. We discussed a hearing issue at her physical in 05/2023. She feels like she has decreased hearing when she is in a loud place with background noise. No tinnitus or dizziness. She was referred to ENT, but she did not schedule the appointment because they did not contact her. She would like a new referral to the practice in [place]. I placed the referral for her. ROS: Constitutional: No unexplained weight loss, fever, chills or night sweats. Eyes: No vision changes, blurry vision, double vision, eye pain, eye redness, eye discharge. ENT: No hearing loss, sneezing, congestion, runny nose or sore throat. Respiratory: No shortness of breath, cough or sputum production. Cardiovascular: No chest pain, chest pressure or chest discomfort. No palpitations or pedal edema. Gastrointestinal: No anorexia, nausea, vomiting or diarrhea. No abdominal pain or blood in stool. Genitourinary: No dysuria, hematuria, urinary frequency. Neurologic: No headache, dizziness, syncope, unilateral weakness, ataxia, numbness or tingling in the extremities. Musculoskeletal: No joint swelling. See HPI Hematologic/Lymphatics: No bleeding or bruising. No painful lymph nodes. Skin: No rash Endocrine: No cold or heat intolerance. No polyuria or polydipsia. Psychiatric: No depression or anxiety. No SI/HI. Physical exam: Constitutional: Alert, in no distress. Head: Normocephalic. Eyes: Pupils are equal, round and reactive to light. Extraocular muscles intact. Ear, Nose and Throat: Canals clear. TMs normal. Normal nasal mucosa. No nasal discharge. No oral lesions. Neck: Supple, Full range of motion. No lymphadenopathy. No palpable thyroid masses. Respiratory: Clear to auscultation. Cardiovascular: S1 S2 regular. No murmurs. Gastrointestinal: Abdomen soft, non-tender, non-distended. Normal bowel sounds. No palpable masses. Neurologic: No focal neurological deficits. Symmetric patellar reflexes. Moves all extremities spontaneously. Sensation intact bilaterally. Skin: No rashes Musculoskeletal: No gross deformities. Normal range of motion. Extremities: Warm and well perfused. No clubbing, cyanosis or edema . Intact peripheral pulses bilaterally. Psychiatric: Normal mood and affect [facility] Medical History (Updated 10/28/24 @ 11:32 by ELSA Payne) Screening for cardiovascular condition Routine physical examination Joint stiffness Stress incontinence Decreased hearing Migraine Malaise and fatigue HSV-1 (herpes simplex virus 1) infection Gestational hypertension Jos Reynolds infection Abnormal Pap smear of cervix Eczema Surgical History (Updated 02/05/24 @ 10:46 by Jennifer Cross CMA) History of wisdom tooth extraction History of removal of cyst Family History (Updated 10/28/24 @ 11:03 by Delaney Barnes MA) Father Hypertension Respiratory disease Mother Hypertension Migraine Thyroid disorder Sister Migraine Sister Migraine Paternal Grandmother Breast cancer Social History (Updated 10/28/24 @ 11:03 by LUIS Krishnamurthy Household Members: Spouse and Children Both parents involved: No Caregiver staying overnight: No Housing: House Are you a primary anesthesiologist and critical care to a significant other at home: No Do you presently have visiting nurse or other home services: No 75 years or older and lives alone: No Alcohol intake: current Alcohol intake frequency: holidays/special occasions only Patient Tobacco Use Status: Never used Tobacco e-Cigarette/Vaping Use: Never Used service: No Current occupational status: employed 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 1. Little interest or pleasure in doing things: not at all 2. Feeling down, depressed, or hopeless: not at all 3. Trouble falling or staying asleep, or sleeping too much: not at all 4. Feeling tired or having little energy: not at all 5. Poor appetite or overeating: not at all 6. Feeling bad about yourself - or that you are a failure or have let yourself or your family down: not at all 7. Trouble concentrating on things, such as reading the newspaper or watching television: not at all 8. Moving or speaking so slowly that other people could have noticed. Or the opposite - being so fidgety or restless that you have been moving around a lot more than usual: not at all 9. Thoughts that you would be better off or of hurting yourself in some way: not at all Total score: 0 Depression Screening Interpretation: Negative Depression Screening Done: Yes 31864 - PHQ-9 Billing: Yes Source: Developed by Drs. Dell Kumar, Yaneli Jama, Sonu Garnica and colleagues, with an educational ancelmo from [employer]. Thrive Questionnaire Date Thrive assessed: 10/28/24 I am a: Patient What is your living situation today?: I have a steady place to live Within the past 12 months, did the food you bought not last and you didn't have the money to get more?: Never true Within the past 12 months, did you worry whether your food would run out before you got money to buy more?: Never true Do you have trouble paying for medicines?: No Do you have trouble getting transportation to medical appointments?: No Do you have trouble paying your heating and electricity bill?: No Do you have trouble taking care of your child, family member or friend?: No Do you have trouble with day-to-day activities such as bathing, preparing meals, shopping, managing finances, etc.?: No Are you currently unemployed and looking for a job?: No Are you interested in more education?: No Please select the resources that you would like help with: None Currently or been in a relationship where the following occur: No concerns reported THRIVE Score: 0 AUDIT C Alcohol Use Questionnaire (AUDIT-C) 1. How often do you have a drink containing alcohol?: Never Total Score: 0 YAMILETH-7 AMB Questionnaire YAMILETH-7 Date YAMILETH - 7 assessed: 10/28/24 Feeling nervous, anxious, or on edge: 0 = Not at all Not being able to stop or control worryin = Not at all Worrying too much about different things: 0 = Not at all Trouble relaxin = Not at all Being so restless that it is hard to sit still: 0 = Not at all Becoming easily annoyed or irritable: 0 = Not at all Feeling afraid as if something awful might happen: 0 = Not at all Total YAMILETH-7 score (0-4 normal; 5-9 mild; 10-14 moderate; 15-21 severe): 0 Source: Developed by Drs. Dell Kumar, Yaneli Jama, Sonu Garnica and colleagues, with an educational ancelmo from [employer]. YAMILETH-7 Assessment Billing YAMILETH-7 Assessment Tool: YAMILETH-7 Assessment 73874 Physical exam (Primary Care) Vital Signs: Last Vital Signs Temp 98.4 F 10/28/24 11:04 Pulse 91 10/28/24 11:04 BP 108/72 10/28/24 11:04 Pulse Ox 98 10/28/24 11:04 Oxygen Delivery Method Room Air 10/28/24 11:04 BMI result Body Mass Index 24.5 Tobacco/Smoking Status: Tobacco use Status Tobacco use date assessed 10/28/24 10/28/24 11:01 Patient Tobacco Use Status Never used Tobacco 10/28/24 11:03 e-Cigarette/Vaping Use Never Used 10/28/24 11:03 PHQ-9: PHQ-9 Score PHQ-9: Total score 0 10/28/24 11:21 Depression Screening Interpretation: Negative Thrive Assessment: Date of Thrive Assessment Date Thrive assessed 10/28/24 10/28/24 11:01 Currently or been in a relationship where the following occur: No concerns reported Coding Level of Care Code Est Pt Prev Care 18-39y(21007) Diagnoses Decreased hearing H91.90 Joint stiffness M25.60 Routine physical examination Z00.00 Screening for cardiovascular condition Z13.6 Additional Codes YAMILETH-7 Assessment Billing - YAMILETH-7 Assessment Tool: YAMILETH-7 Assessment 39856 ([id number]) PHQ-9 - 03662 - PHQ-9 Billing: Yes ([id number]) Assessment & Plan Assessment & Plan (1) Decreased hearing: Code(s): H91.90 - Unspecified hearing loss, unspecified ear Category: Medical Plan: Refer to ENT. (2) Joint stiffness: Code(s): M25.60 - Stiffness of unspecified joint, not elsewhere classified Category: Medical Plan: Ordered labs for joint pain and chronic fatigue. (3) Routine physical examination: Code(s): Z00.00 - Encounter for general adult medical examination without abnormal findin gs Category: Medical Plan: Patient is seen today for a routine physical. As part of this visit we reviewed the following issues, which are considered and essential part of preventative health in this age group: - Annual Palliative Care Specialist exam - Blood pressure screening annually - Cholesterol screening - Osteoporosis prevention including calcium/vitamin D intake, weight bearing exercise & smoking cessation - Nutritional and exercise counseling - Counseling of injury prevention including fire prevention, smoke alarms and seat belt usage - Screening for depression - Prevention of and/or testing for infectious diseases - Education about skin cancer - Recommendations about immunizations - Recommendation of an eye exam - Screening for substance abuse - Genetic cancer risk screening (4) Screening for cardiovascular condition: Code(s): Z13.6 - Encounter for screening for cardiovascular disorders Category: Medical Plan Schedule physical in 1 year. Orders: Orders Rheumatoid Factor Today M25.60 - Stiffness of unspecified joint, not elsewhere classified, Z00.00 - Encounter for general adult medical examination without abnormal findings, Z13.6 - Encounter for screening for cardiovascular disorders Erythrocyte Sedimentation Rate Today M25.60 - Stiffness of unspecified joint, not elsewhere classified, Z00.00 - Encounter for general adult medical examination without abnormal findings, Z13.6 - Encounter for screening for cardiovascular disorders TSH reflex Free T4 Today M25.60 - Stiffness of unspecified joint, not elsewhere classified, Z00.00 - Encounter for general adult medical examination without abnormal findings, Z13.6 - Encounter for screening for cardiovascular disorders Vitamin D 25-OH (D2 and D3) Today M25.60 - Stiffness of unspecified joint, not elsewhere classified, Z00.00 - Encounter for general adult medical examination without abnormal findings, Z13.6 - Encounter for screening for cardiovascular disorders PT Evaluation and Treatment Today N39.3 - Stress incontinence (female) (male) Sjogren's Antibodies Today M25.60 - Stiffness of unspecified joint, not elsewhere classified, Z00.00 - Encounter for general adult medical examination without abnormal findings, Z13.6 - Encounter for screening for cardiovascular disorders PAUL Reflex Titer and Pattern Today M25.60 - Stiffness of unspecified joint, not elsewhere classified, Z00.00 - Encounter for general adult medical examination without abnormal findings, Z13.6 - Encounter for screening for cardiovascular disorders Complete Blood Count Auto Diff Today M25.60 - Stiffness of unspecified joint, not elsewhere classified, Z00.00 - Encounter for general adult medical examination without abnormal findings, Z13.6 - Encounter for screening for cardiovascular disorders Comprehensive Met. Panel Today M25.60 - Stiffness of unspecified joint, not elsewhere classified, Z00.00 - Encounter for general adult medical examination without abnormal findings, Z13.6 - Encounter for screening for cardiovascular disorders Lipid Panel Today M25.60 - Stiffness of unspecified joint, not elsewhere classified, Z00.00 - Encounter for general adult medical examination without abnormal findings, Z13.6 - Encounter for screening for cardiovascular disorders Vitamin B12 Today M25.60 - Stiffness of unspecified joint, not elsewhere classified, Z00.00 - Encounter for general adult medical examination without abnormal findings, Z13.6 - Encounter for screening for cardiovascular disorders, Z91.89 - Other specified personal risk factors, not elsewhere classified IRON PROFILE Today M25.60 - Stiffness of unspecified joint, not elsewhere classified, Z00.00 - Encounter for general adult medical examination without abnormal findings, Z13.6 - Encounter for screening for cardiovascular disorders Ferritin Today M25.60 - Stiffness of unspecified joint, not elsewhere classified, Z00.00 - Encounter for general adult medical examination without abnormal findings, Z13.6 - Encounter for screening for cardiovascular disorders Lyme IgG/IgM w/reflex to WB Today M25.60 - Stiffness of unspecified joint, not elsewhere classified, Z00.00 - Encounter for general adult medical examination without abnormal findings, Z13.6 - Encounter for screening for cardiovascular disorders Referrals Ear/Nose/Throat Referral H91.90 - Unspecified hearing loss, unspecified ear Medications: New ondansetron 4 mg PO Q6H 30 tabs 1RF acyclovir 5% (Zovirax) 1 appl topical .5 times daily 5 grams 5RF 4 days [id number] 50-325-40 mg 1 cap PO Q6H PRN 30 caps 0RF pain
[2024-10-28 11:04] VITALS: BP 108/72; PULSE 91; TEMP 36.9; O2SAT 98; BMI 24.5
--- OUTSIDE RECORDS SUMMARY | 2024-10-28 12:29 | XMS_ITS | Patient Health Record ---
[facility] Address [address] [place] [address] Care Team Providers Care Land Development Project Manager Name Role Phone Jeanette HOWARD, Sharon Primary Care Provider Un available Hectorcyn Sonal Unavailable [phone] Allergies Allergen (clinical drug ingredient) Drug/Non Drug Allergy documented on EMR Reaction Allergy Type Onset Date Status Iodine anaphylaxis Drug Allergy Activ e Shellfish (FN) Shellfish-derived Products anaphylaxis Drug Allergy Active Reason For Referral No Information Medications Medication SIG (Take, Route, Frequency, Duration) Notes Start Date End Date Status Physical Therapy . . . 2-3x/week for 3-4 weeks 04/18/2021 Active Ortho Tri-Cyclen (28) Cont rol Mylan Active Social History Tobacco Use: Social History Observation Description Date Details (start date - stop date) Never Smoker NA - NA Tobacco Use/Smoking Question Answer Notes Are you a: nonsmoker Alcohol Screen Question Answer Notes Did you have a drink containing alcohol in the p ast year? No Points 0 Interpretation Negative Tobacco use other than smoking: Question Answer Notes Are you an other tobacco user? No Plan Of Treatment Pending Test Test Name Order Date X ray : Foot, left 3V 04/18/2021 X ray : Foot, right 3V 04/18/2021 Insurance Providers Payer Name Payer Address Payer Phone Subscriber Number Group Number Insured Name Patient Relationship to Insured Coverage Start Date Coverage End Date Blue Benefits [address] [address] [place] [address] [id number] Becky David Self - patient is the insured Medical (General) History Medical History History ICD Code Jos-Reynolds Anemia Broken bones Surgical History Surgery Date(Month/Year) wisdom teeth extraction
== END 2024-10-28 11:42 | disposition home or self-care (01) ==
LOC: HO.HMCFM 10:54
PROVIDERS: PCP Physician Assistant Medical; Visit Provider Physician Assistant Medical
DX: H91.90 Unspecified hearing loss, unspecified ear (principal); M25.60 Stiffness of unspecified joint, not elsewhere classified; Z00.00 Encounter for general adult medical examination without abnormal findings; Z13.6 Encounter for screening for cardiovascular disorders

== ENCOUNTER → 2024-10-28 10:53 | Outpatient (BNVA) | payer BC, SELFPAY | PROVIDERS: PCP Physician Assistant Medical; Visit Provider Physician Assistant Medical | DX: Z00.00 Encounter for general adult medical examination without abnormal findings (principal); H91.90 Unspecified hearing loss, unspecified ear; M25.60 Stiffness of unspecified joint, not elsewhere classified; Z13.31 Encounter for screening for depression; Z13.30 Encounter for screening examination for mental health and behavioral disorders, unspecified | CPT/HCPCS: 96127 ==

== ENCOUNTER 2024-11-01 15:08 | Outpatient (REF) | payer BC, SELFPAY ==
[2024-11-01 15:23] LABS: MANUAL DIFF FLAG NO
[2024-11-01 15:43] LABS: Basophils Percent Auto 0.7 % (0-2); Eosinophils Absolute Auto 0.2 X10*3/uL (0.0-0.4); Eosinophils Percent Auto 3.3 % (0-4); Hematocrit 41.5 % (37.0-47.0); Hemoglobin 13.9 g/dl (12.0-16.0); Imm Gran Abs Auto 0.01 X10*3/uL (0.00-0.03); Imm Gran Pct Auto 0.2 % (0.0-0.4); Lymphocytes Absolute Auto 2.5 X10*3/uL (1.2-4.9); Lymphocytes Percent Auto 42.9 % (20-40); Mean Corpuscular HGB Conc 33.5 g/dl (31.0-35.0); Mean Corpuscular Hemoglobin 28.6 pg (27.0-33.0); Mean Corpuscular Volume 85.4 fL (80.0-98.0); Mean Platelet Volume 8.8 fL (9.4-12.3); Monocytes Absolute Auto 0.5 X10*3/uL (0.1-1.2); Monocytes Percent Auto 8.6 % (2-11); Neutrophils Absolute Auto 2.6 x10*3/uL (2.0-8.3); Neutrophils Percent Auto 44.3 % (45-73); Platelet Count 355 X10*3/uL (160-400); Red Blood Count 4.86 X10*6/uL (4.20-5.50); Red Cell Distribution Width 12.6 % (11.0-16.0); White Blood Count 5.8 X10*3/uL (4.8-10.8)
[2024-11-01 16:07] LABS: Rheumatoid Factor < 13.0 IU/mL (<15.0)
[2024-11-01 16:11] LABS: Alanine Aminotransferase 14 U/L (0-31); Albumin Level 4.2 g/dL (3.5-5.0); Alkaline Phosphatase 53 U/L (39-117); Anion Gap 10 (12-20); Aspartate Amino Transferase 25 U/L (5-31); Bilirubin Total 0.1 mg/dL (0.0-1.0); Blood Urea Nitrogen 14 mg/dL (9-16); Carbon Dioxide 27 mmol/L (22-29); Chloride 106 mmol/L (96-108); Cholesterol 157 mg/dL (<200); Estimated Glomerular Filt Rate > 60; Glucose Random 92 mg/dL (60-115); HDL Cholesterol 47 mg/dL (>40); Iron 47 mcg/dL (30-160); LDL Cholesterol Calculated 91 mg/dL (<100); Percent Iron Saturation 13 % (15-50); Potassium 3.9 mmol/L (3.3-5.1); Sodium 139 mmol/L (135-145); Total Iron Binding Capacity 351 mcg/dL (228-428); Total Protein 7.6 g/dL (6.5-8.0); Triglycerides 96 mg/dL (<150); Unsaturated Iron Binding 304 ug/dL
[2024-11-01 16:25] LABS: Ferritin 23 ng/mL (10-122); TSH reflex Free T4 1.82 uIU/mL (0.32-4.0)
[2024-11-01 16:28] LABS: Vitamin B12 353 pg/mL (200-900)
[2024-11-01 16:41] LABS: Erythrocyte Sedimentation Rate 7 MM/HR (0-20)
--- OUTSIDE RECORDS SUMMARY | 2024-11-01 16:42 | XMS_ITS | Patient Health Record ---
[facility] Address [address] [place] [address] Care Team Providers Care Reading Aide Name Role Phone Jeanette HOWARD, Sharon Primary Care Provider Un available Hectorcyn Sonal Unavailable [phone] Allergies Allergen (clinical drug ingredient) Drug/Non Drug [...] Coverage End Date Blue Benefits [address] [address] [place] [address] [id number] Becky David Self - patient is the insured Medical (General) History Medical History History ICD Code Jos-Reynolds Anemia Broken bones Surgical History Surgery Date(Month/Year) wisdom teeth extraction
[2024-11-02 09:49] LABS: Lyme Abs Screen <0.90 index
[2024-11-02 18:33] LABS: Antibody to SS-A Antigen <1.0 NEG AI (<1.0 NEG); Antibody to SS-B Antigen <1.0 NEG AI (<1.0 NEG)
[2024-11-03 11:44] LABS: Anti Nuclear Antibody Screen NEGATIVE (NEGATIVE)
[2024-11-05 16:14] LABS: Vitamin D 25-OH, D2 <4 ng/mL; Vitamin D 25-OH, D3 38 ng/mL; Vitamin D 25-OH, Total 38 ng/mL (30-100)
== END 2024-11-01 15:09 | disposition home or self-care (01) ==
LOC: HO.LAB 15:08
PROVIDERS: PCP Physician Assistant Medical; Visit Provider Physician Assistant Medical
DX: Z00.00 Encounter for general adult medical examination without abnormal findings (principal); Z91.89 Other specified personal risk factors, not elsewhere classified; Z13.6 Encounter for screening for cardiovascular disorders; M25.60 Stiffness of unspecified joint, not elsewhere classified
CPT/HCPCS: 36415; 80053; 80061; 82306; 82607; 82728; 83540; 84443; 85025; 85652; 86038; 86235; 86431; 86617; 86618

== ENCOUNTER 2025-04-13 07:28 | Outpatient (REF) | payer BC, SELFPAY ==
--- OUTSIDE RECORDS SUMMARY | 2025-04-13 07:33 | XMS_ITS | Clinical Summary ---
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 Active fexofenadine (VASHTI) 180 MG tablet Active fluconazole (DIFLUCAN) 150 MG tablet daily as needed. 2 Active levonorgestrel and ethynyl estradiol (SEASONIQUE) 0.15 mg-30 mcg (84)/10 mcg (7) 3MPk Take 1 tablet by mouth daily. 2 Active ondansetron (ZOFRAN) 4 MG tablet daily as needed. Active EPINEPHrine 0.3 mg/0.3 mL auto-injector INJECT 1 PEN INTO THE MUSCLE NEEDED FOR LIFE-THREATENI NG ALLERGIC REACTION 2 each 5 2 Active valACYclovir (VALTREX) 500 MG tablet Take 2000 mg bid for 1 day prn HSV Oral 30 tablet 1 3 Active acyclovir (ZOVIRAX) 5 % ointment Apply topically to cold sore every 4 hours prn 15 g 1 3 Active Active Problems Problem Noted Date Diagnosed Date Malaise and fatigue 02/25/2022 Assessment & Plan (02/25/2022 4:53 PM EDT): Likely multifactorial, focus on healthy diet and exercise, Check labs Consider sleep study Vitamin D deficiency 02/25/2022 Assessment & Plan (02/25/2022 4:55 PM EDT): Unclear if stable, check lab Chronic pain of right ankle 02/25/2022 Assessment & Plan (02/25/2022 4:52 PM EDT): Complicated ankle history To ortho to eval Insomnia 02/25/2022 Assessment & Plan (02/25/2022 4:52 PM EDT): Chronic Also with RLS ? Sleep study to eval further ? Contributing to fatigue Bilateral low back pain with sciatica 02/25/2022 Assessment & Plan (02/25/2022 4:51 PM EDT): Per patient, this stems from antalgic gait due to ankle problem To Ortho re ankle May need to refer to PT Seasonal allergies 02/25/2022 Assessment & Plan (02/25/2022 4:55 PM EDT): Continue current regimen Migraine without aura and wi th status migrainosus, not intractable 02/25/2022 Assessment & Plan (02/25/2022 4:54 PM EDT): Long discussion today regarding nature and treatment of migraines Hydration critically important Patient to keep a diary of sxs, etc. Continue INFREQUENT use of flexeril and fioricet Oral herpes 02/25/2022 Assessment & Plan (02/25/2022 4:55 PM EDT): Discussed correct dose of Valtrex and Lysine for prophylaxis History of shingles 02/25/2022 Immunizations Immunization Administration Dates Next Due DTP 01/29/1996, 5,1994,10/04 DTaP 07/31/1999 DIvB-Bra-ETG 10/30/1995, 5,1994,10/04 HPV,quadrivalent 07/12/2014,02/15/2014, 4 Hepatitis B 04/29/1995,1994,1994 INFLUENZA, SPLIT VIRUS, TRIV ALENT W/ PRESERVATIVE IM 01/24/2016,01/24/2015,02/15/2014 IPV 07/31/1999 Influenza Quadrivalent MDCK Preservative Free IM 01/28/2019,05/13/2018 MMR 07/26/1998,10/30/1995 Meningococcal MCV4P 12/07/2012 PPD Test 01/24/2015, 4,02/15/2014,01/05 Polio - OPV 01/29/1995,1994,1994 Tdap 01/11/2015,07/26/2005 Varicella 12/12/2009,07/23/1995 Social History Tobacco Use Types Packs/Day Years Used Date Smoking Tobacco: Never Smokeless Tobacco: Never Alcohol Use Standard Drinks/Week Comments Never 0 (1 standard drink = 0.6 oz pur e alcohol) Child or Family Care Answer Date Record ed Do you have problems with on e of the following making it difficult for you to work, study, or receive health care? No 02/25/2022 Education Answer Date Recorded Are you interested in more education? Not on ramona e 02/26/2024 Are you concerned about learning? Not on file 02/26/2024 No 02/26/2024 No 02/26/2024 Food Answer Date Recorded Within the past 6 months we worried whether our food would run out before we got money to buy more. Never True 02/25/2022 Within the past 6 months the food we bought just didn't last and we didn't have enough money to get more. Never True Residential Stability Answer Date Recor ded What is your housing situation today? I have lianet sing 02/25/2022 How many times have you move d in the past 12 months? Zero (I did not move) 02/25/2022 Paying for Meds Answer Date Recorded Do you have trouble paying for medicines? No 02/25/2022 Paying Utility Bills Answer Date Record ed Do you have trouble paying your heating or elect ricity bill? No 02/25/2022 Transportation Answer Date Recorded Has the lack of transportati on kept you from medical appointments or from getting medications? No 02/25/2022 Unemployment Answer Date Recorded Are you currently unemployed or working on a part-time or temporary basis, and looking for work? No 02/25/2022 Digital Access Answer Date Recorded No 10/08/2022 No 10/08/2022 Reliable internet access at home? Not on file 10/08/2022 Device with a working camera? Not on file Comments Unknown Sex and Gender Information Value Date Recorded Sex Assigned at Female 02/25/2022 11:28 AM EDT Legal Sex Female 3:55 PM EST Gender Identity Female 02/25/2022 11:28 AM EDT Sexual Orientation Straight 02/25/2022 11 :28 AM EDT Last Filed Vital Signs Vital Sign Reading Time Taken Comments Blood Pressure 120/80 02/25/2022 3:03 PM EDT Pulse 103 02/25/2022 3:03 PM EDT Temperature 36.3 C (97.4 F) 02/25/2022 3:03 PM EDT Respiratory Rate 18 02/25/2022 3:03 PM EDT Oxygen Saturation 100% 02/25/2022 3:03 PM EDT Inhaled Oxygen Concentration - - Weight 68.5 kg (151 lb) 02/25/2022 3:03 PM EDT Height 168.5 cm (5' 6.34 ) 02/25/2022 3:03 PM ED T Body Mass Index 24.12 02/25/2022 3:03 PM EDT Plan of Treatment Health Maintenance Due Date Last Done Comments HEPATITIS C SCREENING 2012 HIV ONE-TIME SCREENING (18-65 YEARS) 2012 PAP SMEAR 07/26/2015 DEPRESSION SCREENING 02/25/2023 02/25/2022 INFLUENZA VACCINE (#1) 2024 9, 05/13/2018, 01/24/2016, Additional history exists COVID-19 VACCINE ( season) 2025 Adult Td,Tdap Booster 01/11/2025 01/11/2015, 006 HIB VACCINES Completed 10/30/1995, 01/11, 1994, Additional history exists MENINGOCOCCAL VACCINES (ACWY) Completed 12/07/2012 SMOKING STATUS SCREENING (Once After 26 Yrs) Completed 02/25/2022 HEPATITIS A VACCINES Aged Out No long er eligible based on patient's age to complete this topic MENINGOCOCCAL VACCINES (B) Aged Out N o longer eligible based on patient's age to complete this topic PNEUMOCOCCAL VACCINES (0-49 years) Aged Out No longer eligible based on patient's age to complete this topic Medical Devices Not on file Insurance [employer] Member Subscriber Plan / Payer ( fective 2019-Present) Name:Becky Herring Relation to Subscriber:Self Name:Becky Herring Payer ID:[id number] ([facility]) Type:PPO Address: [place] [phone] [employer] [place] [phone] [employer] [place] [phone] [employer] [address] [address] [employer] Member Subscriber Plan / Payer (Ef fective 2019-Present) Name:Becky Herring Relation to Subscriber:Self Name:Bekcy Herring Payer ID:[id number] ([facility]) Type:PPO Address: [place] [phone] [place] [email or web address] Member Subscriber Plan / Payer (Ef fective 2019-Present) Name:Becky Herring Relation to Subscriber:Self Name:Becky Herring Payer ID:[id number] ([facility]) Type:PPO Address: [address] [place] [employer] Member Subscriber Plan / Payer (Ef fective 2019-Present) Name:Becky Herring Relation to Subscriber:Self Name:Becky Herring Payer ID:[id number] ([facility]) Type:PPO Address: [place] [phone] [employer] Additional Source Comments The information contained in this document represents components of the legal health record. It is not the complete legal health record.[facility]
[2025-04-13 08:05] LABS: MANUAL DIFF FLAG NO
[2025-04-13 09:18] LABS: Hematocrit 37.9 % (37.0-47.0); Hemoglobin 12.4 g/dl (12.0-16.0); Imm Gran Abs Auto 0.02 X10*3/uL (0.00-0.03); Imm Gran Pct Auto 0.3 % (0.0-0.4); Lymphocytes Absolute Auto 1.7 X10*3/uL (1.2-4.9); Mean Corpuscular HGB Conc 32.7 g/dl (31.0-35.0); Mean Corpuscular Hemoglobin 28.2 pg (27.0-33.0); Mean Corpuscular Volume 86.1 fL (80.0-98.0); NRBC Abs Auto 0.000 X10*3/uL (0.0-0.012); NRBC Pct Auto 0.0 /100WBC (0.0-0.2); Platelet Count 330 X10*3/uL (160-400); Red Blood Count 4.40 X10*6/uL (4.20-5.50); White Blood Count 6.2 X10*3/uL (4.8-10.8)
[2025-04-13 09:33] LABS: Appearance Urine Cloudy; Glucose Urine UA Negative (Negative); PH 8.0 (5.0-9.0); Specific Gravity - Urine 1.025 (1.005-1.025); UMIC TRIGGER UA YES
[2025-04-13 09:40] LABS: Alanine Aminotransferase 16 U/L (0-31); Aspartate Amino Transferase 22 U/L (5-31); Estimated Glomerular Filt Rate > 60
[2025-04-13 09:53] LABS: Protein/Creatinine Ratio, Ur 0.06 (<0.2); Total Protein Urine Random 9 mg/dL (<12)
[2025-04-13 09:58] LABS: HBsAGNum1 0.42 S/CO (0.00-0.99); HIV Num 1 0.08 S/CO (0.00-0.99); Hepatitis B Surface Antigen Negative (Negative); Syphilis Screen Nonreactive (Nonreactive); ~HepC Num1 0.13 S/CO (0.00-0.79); ~Hepatitis C Antibody Nonreactive (Nonreactive)
== END 2025-04-13 07:29 | disposition home or self-care (01) ==
LOC: HO.LAB 07:28
PROVIDERS: PCP Physician Assistant Medical; Visit Provider Advanced Practice Midwife
DX: Z01.84 Encounter for antibody response examination (principal); Z11.59 Encounter for screening for other viral diseases; Z13.1 Encounter for screening for diabetes mellitus; Z11.4 Encounter for screening for human immunodeficiency virus [HIV]
CPT/HCPCS: 36415; 81001; 82565; 82570; 83036; 84156; 84450; 84460; 85025; 86762; 86780; 86803; 86850; 86900; 86901; 87086; 87340; 87389